=== PATIENT | male | born 1965 | race Caucasian/White ===

== ENCOUNTER 2017-10-13 11:09 | Inpatient (IN) | payer BC ==
[~2017-10-13] VITALS: Ht 180.3 cm; Wt 86.2 kg
[2017-10-13 11:21] VITALS: Ht 180.3 cm; Wt 86.2 kg
[2017-10-13 17:53] VITALS: BP 186/90
[2017-10-13 17:55] LABS: CHOLESTEROL/HDL RATIO 3.8; PHOSPHOROUS 3.9 mg/dL (2.5-4.9)
[2017-10-13 18:03] LABS: T3 TOTAL 1.06 ng/mL
[2017-10-13 18:05] LABS: BASOPHIL % 0.4 % (0-2); PLATELET COUNT 200 x10^3mcL (130-400); RED CELL DISTRIBUTION WIDTH 13.4 % (11.5-14.5)
[2017-10-13 18:25] LABS: FREE T4 0.74 ng/dL (0.76-1.46); FREE THYROXINE INDEX 1.9 ug/dL (1.4-4.5); T4(THYROXINE) 5.5 ug/dL (4.7-13.3)
[2017-10-13 18:45] VITALS: BP 176/100
[2017-10-13 19:30] VITALS: BP 166/77
[2017-10-13 23:48] VITALS: BP 134/82
[2017-10-14 01:50] LABS: microscopic required? NO
[2017-10-14 02:36] LABS: urine erythrocyte NEGATIVE (NEGATIVE)
[2017-10-14 02:55] LABS: AMPHETAMINE QUAL UR NONE DETECTED (NEG <=1000)
[2017-10-14 05:47] VITALS: BP 110/61
[2017-10-14] MEDS ORDERED: ROBAXIN-750750 MG PO (07:39)
[2017-10-14] MEDS ORDERED: METOPROLOL TART25 M1 PO (07:39)
[2017-10-14 07:58] LABS: PLATELET COUNT 226 x10^3mcL (130-400); RED CELL DISTRIBUTION WIDTH 13.2 % (11.5-14.5)
[2017-10-14 08:01] LABS: BASOPHIL % 0 % (0-2)
[2017-10-14 08:03] LABS: CALCIUM 9.2 mg/dL (8.5-10.1); CARBON DIOXIDE 25.7 mmol/L (21-32); CHLORIDE SERUM 104 mmol/L (98-107); CREATININE SERUM 1.2 mg/dL (0.7-1.3); GFR1 > 60 mL/min; GLUCOSE SERUM 142 mg/dL (74-106); MAGNESIUM 2.2 mg/dL (1.8-2.4); PHOSPHOROUS 2.9 mg/dL (2.5-4.9); POTASSIUM SERUM 4.5 mmol/L (3.5-5.1); SODIUM SERUM 137 mmol/L (136-145)
[2017-10-14 08:40] VITALS: BP 139/77
[2017-10-14] MEDS ORDERED: NORCO1 TA2 PO (08:45)
[2017-10-14 12:51] VITALS: BP 139/77
== END 2017-10-14 14:03 | disposition home or self-care (01) | DRG 552 ==
LOC: ED 11:09 → DU 16:21
PROVIDERS: Family Medicine
DX: M62.830 Muscle spasm of back (principal); M51.36 Other intervertebral disc degeneration, lumbar region; M54.5 Low back pain; I10 Essential (primary) hypertension; Z91.14 Patient's other noncompliance with medication regimen; Z87.891 Personal history of nicotine dependence
CPT/HCPCS: 83880; 84439; J1100; J1885; J2270; J2405; J2800; J3490; Q0162

== ENCOUNTER 2018-10-28 10:45 | Emergency (ER) | payer BC ==
[~2018-10-28] VITALS: Ht 180.3 cm; Wt 83.0 kg
[~2018-10-28 10:45] MED LIST: METOPROLOL TART25 M1 PO; NORCO1 TA2 PO; ROBAXIN-750750 MG PO
[2018-10-28 10:54] VITALS: Ht 180.3 cm; Wt 83.0 kg
[2018-10-28 13:07] VITALS: BP 110/67
== END 2018-10-28 13:54 | disposition home or self-care (01) ==
LOC: ED 10:45
DX: M54.5 Low back pain (principal); G89.29 Other chronic pain; M51.86 Other intervertebral disc disorders, lumbar region; I10 Essential (primary) hypertension
CPT/HCPCS: 20552; J1100; J1885; J2001

== ENCOUNTER 2019-12-02 20:33 | Emergency (ER) | payer BC ==
[~2019-12-02] VITALS: Ht 180.3 cm; Wt 82.6 kg
[2019-12-02 20:38] VITALS: Ht 180.3 cm; Wt 82.6 kg
[2019-12-02 21:00] LABS: BASOPHIL % 0.6 % (0-2); PLATELET COUNT 207 x10^3mcL (130-400); RED CELL DISTRIBUTION WIDTH 13.3 % (11.5-14.5)
[2019-12-02 21:47] LABS: CALCIUM 8.5 mg/dL (8.5-10.1); CARBON DIOXIDE 27.4 mmol/L (21-32); CHLORIDE SERUM 101 mmol/L (98-107); CREATININE SERUM 1.1 mg/dL (0.7-1.3); GFR1 > 60 mL/min; GLUCOSE SERUM 99 mg/dL (74-106); POTASSIUM SERUM 3.9 mmol/L (3.5-5.1); SODIUM SERUM 138 mmol/L (136-145)
[2019-12-02 21:51] LABS: ALBUMIN 4.1 g/dL (3.4-5.0); ALKALINE PHOSPHATASE 58 U/L (46-116); ALT/SGPT 87 U/L (16-63); AST/SGOT 40 U/L (15-37); BILIRUBIN TOTAL 0.3 mg/dL (0.20-1.00); TOTAL PROTEIN, SERUM 7.3 g/dL (6.4-8.2)
[2019-12-02 22:28] VITALS: BP 136/82
== END 2019-12-02 22:28 | disposition home or self-care (01) ==
LOC: ED 20:33
DX: R07.89 Other chest pain (principal); I10 Essential (primary) hypertension; G89.29 Other chronic pain
CPT/HCPCS: Q0092